=== PATIENT | female | born 1950 | race Caucasian/White ===

== ENCOUNTER 2021-11-09 07:09 | Day surgery (SDC) | payer OTHER ==
[~2021-11-09 07:09] MED LIST: AMLODIP PO; COZAAR100 MG PO; GABAPENT PO; LEVAQUIN750 MG PO; PREVACID30 MG PO; SIMVAST PO
[2021-11-09] MEDS ORDERED: PERCOCET 5-3251 EACH PO (11:31)
== END 2021-11-09 16:10 | disposition home or self-care (01) ==
LOC: CIR.AMB 07:09
PROVIDERS: ATTEND Surgery
DX: C44.520 Squamous cell carcinoma of anal skin (principal); Z20.822 Contact with and (suspected) exposure to COVID-19; K62.89 Other specified diseases of anus and rectum; I10 Essential (primary) hypertension; J44.9 Chronic obstructive pulmonary disease, unspecified; Z87.891 Personal history of nicotine dependence; F14.11 Cocaine abuse, in remission; F12.11 Cannabis abuse, in remission